=== PATIENT | female | born 1980 | race Caucasian/White ===

== ENCOUNTER 2018-06-19 11:00 | Inpatient (IN) | payer BC, OTHER ==
[2018-06-19 13:34] VITALS: BMI 37.8
[2018-06-19] MEDS ORDERED: morphine SULFATE/Preservative Free 0.5 MG/ML (1cc Syringe) ONE (13:44)
[2018-06-19] MEDS ORDERED: CLINDAMYCIN PHOSPHATE 600 MG/4 ML VIAL ONE (14:06)
[2018-06-19] MEDS ORDERED: OXYTOCIN 10 UNITS/ML VIAL ONE ×2 (14:18→14:31)
[2018-06-19] MEDS ORDERED: ePHEDrine SULFATE 50 MG/1 ML AMPULE ONE (14:23)
[2018-06-19 15:12] LABS: VENOUS PC02 53.7 mmHg (38-52); VENOUS PH 7.28 (7.32-7.42)
[2018-06-19 15:13] LABS: VENOUS PO2 16.5 mmHg (28-48)
[2018-06-19 15:14] LABS: ARTERIAL BLOOD GAS PCO2 47.6 mmHg (35-45); ARTERIAL BLOOD GAS pH 7.29 (7.35-7.45)
[2018-06-19 15:17] LABS: ARTERIAL BLOOD GAS PO2 17.4 mmHg (80-100)
[2018-06-19] MEDS ORDERED: oxyCODONE HCL 5 MG TABLET PO PRN ×2 (15:38)
[2018-06-19] MEDS ORDERED: BENZOCAINE 28 GM HEMORRHOIDAL OINTMENT TP PRN (15:38)
[2018-06-19] MEDS ORDERED: WITCH HAZEL 50% (TUCKS) 40 PAD/JAR PAD TP PRN (15:38)
[2018-06-19] MEDS ORDERED: METHYLERGONOVINE MALEATE 0.2 MG/1 ML AMP IM PRN (15:38)
[2018-06-19] MEDS ORDERED: BENZOCAINE 20% 57 GM BOTTLE TP PRN (15:38)
--- NOTE | 2018-06-19 15:38 | HP ---
Past Medical History - Admission History of Present Illness: 38 yo @ 38 6/7 wks, by first trimester ultrasound, EDC 06/27/2018 complicated by: 1. AMA - reassuring testing 2. Obesity - early GCT elevated, normal GTT; second trimester GTT WNL 20 lb total weight gain EFW 06/10 - 3123 g (47%) 6 lb 14 oz 3. Hx/o infertility - s/p failed IUI x 2, spontaneous 4. Desires permanent sterilization 5. Transverse lie Patient presents for routine testing, she was noted to have a FH baseline of 105 - 115. BPP was performed, -2 for breathing noted. She denies complaints, reports movement, denies leakage of fluid, vaginal bleeding or contractions. History Source: Patient Limitations to Obtaining History: No Limitations - Past Medical History Cardiovascular: No: HTN Pulmonary: No: Asthma Gastrointestinal: No: GERD ...: 3 ...Para: 1 ...Term: 1 ...: 0 ...Spon : 1 ...Induced : 0 ...Multiple Gestation: 0 ...LMP: 09/30/17 ... Weeks Gestation by Dates: 37.3 ...EDC by Dates: 07/07/18 ...EDC by Sono: 06/27/18 Heme/Onc: Yes: Anemia - Past Surgical History Past Surgical History: Yes: Hx Myomectomy: No Hx Transabdominal Cerclage: No - Smoking History Smoking history: Never smoked Have you smoked in the past 12 months: No - Alcohol/Substance Use Hx Alcohol Use: No History of Substance Use: reports: None - Social History Usual Living Arrangement: Yes: With Spouse History of Recent Travel: No Home Medications - Allergies Allergies/Adverse Reactions: Allergies Allergy/AdvReac Type Severity Reaction Status Date / Time Penicillins AdvReac Mild Vomiting Verified 06/19/18 11:34 - Home Medications Home Medications: Ambulatory Orders Vitamins (Sjr) - [ .Vitamins *Rx*] 1 tab PO DAILY 09/20/12 Family Disease History - Family Disease History Family History: Denies Review of Systems - Review of Systems Constitutional: reports: No Symptoms Cardiovascular: reports: No Symptoms Respiratory: reports: No Symptoms Gastrointestinal: reports: No Symptoms Genitourinary: reports: No Symptoms Musculoskeletal: reports: No Symptoms Integumentary: reports: No Symptoms Neurological: reports: No Symptoms Endocrine: reports: No Symptoms Hematology/Lymphatic: reports: No Symptoms Physical Exam - Maternity Vital Signs: Vital Signs Temperature 97.8 F 06/19/18 11:31 Pulse Rate 84 06/19/18 11:31 Respiratory Rate 18 06/19/18 11:31 Blood Pressure 121/75 06/19/18 11:31 O2 Sat by Pulse Oximetry (%) Constitutional: Yes: Well Nourished, No Distress, Calm HENT: Yes: Atraumatic, Normocephalic Cardiovascular: Yes: Regular Rate and Rhythm Lungs: Clear to auscultation - Abdominal Exam/OB Number of Fetuses: Single Presentation: Transverse - Vaginal Exam/OB Vaginal Bleediing: No - Physical Exam Musculoskeletal: Yes: WNL Extremities: Yes: WNL Psychiatric: Yes: Alert, Oriented - Labs Lab Results: PNL - O positive; antibody negative; RPR NR; HIV neg; HBS Ag neg; HCV neg; rubella immune; varicella immune; parvo immune; early gct elevated --> normal GTT; normal second trimester GTT; GBS positive Hemorrhage Risk Assessment - Risk Factors Medium Risk Factors: Yes: None High Risk Factors: Yes: None Risk Score: 1 Risk Level: Medium Risk Assessment/Plan 38 yo @ 389 6/7 wks, nonreassuring testing, plan for repeat CD Desires perminant sterilization, plan for bilateral salpingectomy 1. Consents reviewed and signed 2. Routine labs reviewed 3. Will proceed to OR
--- NOTE | 2018-06-19 15:38 | PN ---
Delivery - Delivery Section: Repeat Type of Anesthesia: Spinal EBL (cc): 700 Delivery, Single - Stages of Labor Date of Delivery: 06/19/18 Time of Delivery: 14:29 Time Placenta Delivered: 14:31 - Condition of Infant Service Center Specialist/Credit And Collections Representative Present: Yes Name: Caitlin Lopez Gender: Female Weight: 7 lb 6 oz Total Hours ROM (Hrs/Mins): 4 minutes - 1 Minute Total Score: 9 5 Minutes Total Score: 9 - Feeding Plan Initial Plan: Exclusive throughout hospitalization Remarks - Remarks Remarks: Surgeon: Jasiel; Assist: Isaiah; Anesthesia: Rangel Surgery: repeat CD, bilateral salpingectomy via pfannensteil Findings: Female , transverse position; rotated to breech; normal bilateral fallopian tubes and ovaries; posterior fibroid IVF: 1500; UOP 200: EBL 700 Dictation: [id number]
[2018-06-19] MEDS: OXYTOCIN 20 UNITS in 0.9% NS 20 UNIT/1,000 ML INFUS.BAG IV SCH (16:30)
[2018-06-19] MEDS ORDERED: IBUPROFEN 800 MG/8 ML IJ IVPB ONE (16:36)
[2018-06-19] MEDS: IBUPROFEN 800 MG/8 ML IJ IVPB PRN (16:50)
[2018-06-19] MEDS ORDERED: CITRIC ACID/SODIUM CITRATE 30 ML UNIT-DOSE CUP PO ONE (17:00)
[2018-06-19] MEDS ORDERED: ELECTROLYTE-148 SOLN 1,000 ML IV ONE (17:15)
[2018-06-19] MEDS ORDERED: TUBERCULIN PPD 5 TU/0.1ML SYRINGE (IN PATIENT USE ONLY) ID ONE (17:30)
[2018-06-19] MEDS: FERROUS SO4 325 MG TABLET (FP) PO SCH (18:28)
[2018-06-19] MEDS ORDERED: ONDANSETRON 4 MG/2 ML VIAL IVPUSH PRN (19:40)
--- NOTE | 2018-06-19 22:30 | DS ---
Physical Exam-INSTRUCTOR FLYING Vital Signs: Vital Signs Temperature 97.9 F 06/19/18 21:00 Pulse Rate 88 06/19/18 21:00 Respiratory Rate 20 06/19/18 22:00 Blood Pressure 127/76 06/19/18 21:00 O2 Sat by Pulse Oximetry (%) 100 06/19/18 16:42 Delivery - Delivery Section: Repeat Type of Anesthesia: Spinal EBL (cc): 700 Delivery, Single - Stages of Labor Date of Delivery: 06/19/18 Time of Delivery: 14:29 Time Placenta Delivered: 14:31 - Condition of Infant Leaf Sorter/Building Energy Retrofit Technician Present: Yes Name: Caitlin Lopez Infant Gender: Female Weight: 7 lb 6 oz Total Hours ROM (Hrs/Mins): 4 minutes - 1 Minute Total Score: 9 5 Minutes Total Score: 9 - [place] Feeding Plan Initial Plan: Exclusive throughout hospitalization Discharge Summary Reason For Visit: ADMIT SECTION Current Active Problems Anemia (Acute) Non-reassuring heart tones complicating , antepartum (Acute) Status post repeat low transverse section (Acute) Sterilization (Acute) Procedures: Principal: delvivery and bilateral salpingectomy Hospital Course: Patient was admitted for repeat delivery at 38 + wks for nonreassuring testing POD # 1 patient ambulated, voiding, passing gas, tolerating oral intake and with adequate pain control. Noted to have mild asymptomatic anemia She fulfilled all criteria for discharge POD #3 Condition: Good - Instructions Diet, Activity, Other Instructions: [facility] Reference #: [id number] Physical activity Resume your normal everyday activity as tolerated no heavy lifting or exercise until seen by your surgeon. You may walk unlimited alexus of and climb stairs. You may resume driving the car when you feel safe and comfortable behind the wheel. No sexual activity as instructed. Wound care If you have a bandage, leave it on, and keep dry for 48-72 hours. After that time discard the outer bandage. If they are tapes on the skin under the out of bandage leave them in place. They will peel off in the next 7 to 10 days. Do Not Peel them off. You may shower the day after surgery. If there are tapes present on the skin, you may shower over them. Diet There are no dietary restrictions. Eat healthy, high-fiber foods. Drink 6 to 8 glasses of liquid each day. This will assist in keeping your bowels are regular. Pain management You may take Tylenol or acetaminophen or Ibuprofen (for example, Motrin, Advil etc.) from my pain prescription medication is ordered should be taken as prescribed for moderate to severe pain. Call MD for any of the following: Severe pain not relieved by medication Fever of 101 or higher Excessive bleeding or drainage on dressing Inability to urinate Referrals: Iesha Weathers MD [Staff Physician] - Disposition: HOME - Home Medications Comprehensive Discharge Medication List: Ambulatory Orders Vitamins (Sjr) - [ .Vitamins *Rx*] 1 tab PO DAILY 09/20/12
[2018-06-20] MEDS: IBUPROFEN 800 MG/8 ML IJ IVPB PRN ×2 (02:00→10:47)
--- NOTE | 2018-06-20 07:31 | PN ---
Post Progress Note - Subjective Subjective: Patient without acute complaints. Tolerating clears, without complaints of nausea or vomiting. No ambulation yet. Denies fevers or chills. without difficulty Pain well controlled Benson removed this AM, no voiding yet. Denies flatus. Post Day: 1 Type of Delivery: Repeat C/S Vital Signs: Vital Signs Temperature 97.9 F 06/20/18 05:00 Pulse Rate 82 06/20/18 05:00 Respiratory Rate 20 06/20/18 06:00 Blood Pressure 96/65 06/20/18 05:00 O2 Sat by Pulse Oximetry (%) 100 06/19/18 16:42 Breast Exam: Yes: Soft Uterus: Yes: Fundus Firm, Fundus @ umbilicus Incision: Yes: Dressing dry and intact Abdomen/GI: Yes: Abdomen soft, Tender (mild incisional). No: Abdominal Distention, Passing flatus, Tolerating PO Lochia: Yes: Serosa Lochia, amount: Moderate Extremities: Yes: Calves non-tender, Edema (trace) Assessment/Plan 38 yo POD # 1 s/p repeat CD + bilateral salpingectomy, afebrile, vital signs stable, doing well 1. Continue routine postoperative care. 2. Follow up AM CBC 3. Rh positive status, no rhogam indicated. 4. Encourage ambulation and incentive spirometer use 5. Continue oral pain medication 6. Anticipate discharge home postoperative day #3 or #4
[2018-06-20 08:05] LABS: BASO % 0.3 % (0-2.0); EOS % 0.6 % (0-4.5); HEMATOCRIT 24.7 % (32.4-45.2); HEMOGLOBIN 8.1 GM/dL (10.7-15.3); MCH 25.8 pg (25.7-33.7); MCHC 32.7 g/dl (32.0-36.0); MEAN CELL VOLUME 78.8 fl (80-96); MEAN PLT VOLUME 8.7 fl (7.5-11.1); MONO % 8.3 % (3.8-10.2); NEUT % 74.8 % (42.8-82.8); PLATELET COUNT 162 K/MM3 (134-434); RBC 3.13 M/mm3 (3.60-5.2)
--- NOTE | 2018-06-20 08:27 | PN ---
Progress Note, Physician Chief Complaint: Pt. pain controlled, feeling good. Has not gotten out of bed and frances still in place. No anesthesia complaints. - Current Medication List Current Medications: Active Medications Acetaminophen (Tylenol -) 650 mg PO Q4H PRN PRN Reason: FEVER Benzocaine (Americaine 20% [place] -) 1 spray TP DAILY PRN PRN Reason: Pain - Topical Benzocaine (Americaine Ointment -) 1 applic TP DAILY PRN PRN Reason: Pain - Topical Bisacodyl (Dulcolax Suppository -) 10 mg RC DAILY PRN PRN Reason: CONSTIPATION Ferrous Sulfate (Feosol -) 325 mg PO BIDWM [facility] Last Admin: 06/19/18 18:28 Dose: Not Given Oxytocin/Sodium Chloride (Normal Saline+20 Units Oxytocin -) 20 unit in 1,000 mls @ 125 mls/hr IV ASDIR [facility] Last Admin: 06/19/18 16:30 Dose: 125 mls/hr Ibuprofen (Motrin -) 600 mg PO Q4H PRN PRN Reason: PAIN LEVEL 1 - 3 Ibuprofen (Caldolor Injection -) 800 mg IVPB Q8H PRN PRN Reason: PAIN LEVEL 1-5 Last Admin: 06/20/18 02:00 Dose: 800 mg Methylergonovine Maleate (Methergine Injection -) 0.2 mg IM Q4H PRN PRN Reason: Excessive Bleeding (L&D) Ondansetron HCl (Zofran Injection) 4 mg IVPUSH Q6H PRN PRN Reason: NAUSEA AND/OR VOMITING Last Admin: 06/19/18 19:49 Dose: 4 mg Oxycodone HCl (Roxicodone -) 5 mg PO Q4H PRN PRN Reason: PAIN LEVEL 4 - 6 Oxycodone HCl (Roxicodone -) 10 mg PO Q4H PRN PRN Reason: PAIN LEVEL 7 - 10 Multivit/Folic Acid/Iron ( Vitamins (Sjr) -) 1 tab PO DAILY [facility] Simethicone (Mylicon -) 80 mg PO Q4H PRN PRN Reason: GAS Witch Ewa/Glycerin (Tucks Pads -) 1 pad TP DAILY PRN PRN Reason: Pain - Topical - Objective Vital Signs: Vital Signs Temperature 97.9 F 06/20/18 05:00 Pulse Rate 82 09/30/18 05:00 Respiratory Rate 20 06/20/18 06:00 Blood Pressure 96/65 06/20/18 05:00 O2 Sat by Pulse Oximetry (%) 100 06/19/18 16:42 Constitutional: Yes: Well Nourished, No Distress, Calm Musculoskeletal: Yes: WNL Neurological: Yes: WNL, Alert, Oriented ...Motor Strength: WNL Labs: CBC, BMP 06/20/18 07:20 Assessment/Plan POD#1 s/p repeat under spinal with duramorph. Doing well. Will D/C from anesthesia care once ambulating and voiding this morning.
[2018-06-20] MEDS: FERROUS SO4 325 MG TABLET (FP) PO SCH ×2 (09:30→18:18)
[2018-06-20] MEDS: PRENATAL VITAMINS W/ FOLIC ACID TABLET (FP) PO SCH (09:31)
--- NOTE | 2018-06-20 12:14 | OP ---
DATE OF OPERATION: 06/19/2018 ATTENDING PHYSICIAN: Iesha Weathers MD PREOPERATIVE DIAGNOSES: Intrauterine , 38-6/7 weeks, nonreassuring incidental chest pain, desiring permanent sterilization. POSTOPERATIVE DIAGNOSES: Intrauterine , 38-6/7 weeks, nonreassuring incidental chest pain, desiring permanent sterilization. SURGERY: Repeat delivery, bilateral salpingectomy via Pfannenstiel skin incision. MR TEACHER: Bhsakar Colon MD ANESTHESIOLOGIST: Fausto Multani MD ANESTHESIA: Spinal. URINE OUTPUT: 200. IV FLUIDS: 1500. ESTIMATED BLOOD LOSS: 700. INDICATION: The patient is a 38-year-old, 3, para 1, who was presenting for testing, was found to have a low heart baseline rate with good variability and accelerations. She underwent a BPP, which revealed a -2 for breathing, and the decision was made to proceed with delivery. Furthermore, she wanted permanent sterilization. Consents were reviewed and signed. Risks, benefits, alternatives and complications of procedure were discussed including infection, bleeding, damage to surrounding organs such as the bowel, bladder, injury to , risk of tubal ligation failure, risk of regret. She expressed understanding and was brought to the operating room. DESCRIPTION: When anesthesia was found to be adequate, patient was prepped and draped in normal sterile fashion, placed in dorsal supine position, leftward tilt. An approximately 11 cm skin incision was made along the previous skin scar and carried down to the underlying rectus muscle using the Bovie electrocautery. The fascia was nicked in midline, extended laterally using Crain scissors. Inferior portion of the fascial incision was tented up using Mendoza clamps, dissected off underlying rectus muscles using Crain scissors. Attention was brought to the superior fascial incision, where in a similar fashion, it was tented up using Mendoza clamps, dissected off the underlying rectus muscle using Crain scissors. The rectus muscles were in the midline and the peritoneum was entered bluntly. The peritoneal incision was extended superiorly and inferiorly. An Dmitry O retractor was placed in the abdominal cavity and used for adequate visualization. Palpation of the uterus revealed a transverse lie. The infant was rotated to a breech and hysterotomy was performed. The hysterotomy incision was extended using bandage scissors. Amniotomy was performed. Clear fluid was noted. Footling breech was noted. The infant's feet were delivered to the level of the shoulders, where the right shoulder was rotated anteriorly and the right arm and the left arm were delivered. The infants head was brought to the hysterotomy site and the 's head was flexed, and the infant was delivered. Cord was clamp and cut. Cord blood and cord gases were collected and sent. The infant was handed to awaiting NICU staff present for delivery. The placenta was manually extracted. The uterus was cleared of all clot and debris. The uterus was closed using 0 Biosyn with a running layer, the second layer was imbricated layer. Attention was brought to the left fallopian tube. It was followed to fimbriated end. The fallopian tube was removed, suture ligated using a 0 Vicryl. Attention was brought to the right fallopian tube. It was followed to fimbriated end and it was suture ligated using 0 Vicryl. Good hemostasis was noted. The gutters were cleared of all clot and debris. The uterus was returned back to the abdominal cavity. All pedicles were examined and found to be hemostatic. The peritoneum was closed using 2-0 Biosyn in a running fashion. The rectus muscles were reapproximated using 2-0 Biosyn in interrupted fashion. The fascia was closed using 0 Vicryl in running fashion. Subcutaneous fat was closed using 0 Vicryl in running fashion. The skin was reapproximated using 3-0 Vicryl. The patient tolerated procedure well. Estimated blood loss was 700 mL. The patient was brought to recovery room in stable condition. Davidson [id number] MTDD
[2018-06-20] MEDS: SIMETHICONE 80 MG TAB.CHEW (FP) PO PRN ×2 (14:10→18:18)
[2018-06-20] MEDS ORDERED: BISACODYL 10 MG SUPP.RECT RC PRN (15:38)
[2018-06-20] MEDS: ACETAMINOPHEN 325 MG TABLET (FP) PO PRN (16:35)
[2018-06-20] MEDS: IBUPROFEN 600 MG TABLET (FP) PO PRN (16:35)
[2018-06-20] MEDS: OXYTOCIN 20 UNITS in 0.9% NS 20 UNIT/1,000 ML INFUS.BAG IV SCH (18:12)
[2018-06-21] MEDS: SIMETHICONE 80 MG TAB.CHEW (FP) PO PRN ×3 (00:32→21:37)
[2018-06-21] MEDS: IBUPROFEN 600 MG TABLET (FP) PO PRN ×4 (00:33→21:36)
[2018-06-21] MEDS: ACETAMINOPHEN 325 MG TABLET (FP) PO PRN ×4 (00:33→21:37)
--- NOTE | 2018-06-21 07:44 | PN ---
Post Progress Note - Subjective Subjective: Patient without acute complaints. Reports tolerating oral intake without nausea or vomiting. Ambulating without dizziness. Denies fevers or chills. Pain well controlled with oral pain medication. without difficulty. Passing flatus. Post Day: 2 Type of Delivery: Repeat C/S Vital Signs: Vital Signs Temperature 97.9 F 06/20/18 21:01 Pulse Rate 77 06/20/18 21:01 Respiratory Rate 18 06/20/18 21:01 Blood Pressure 134/81 06/20/18 21:01 O2 Sat by Pulse Oximetry (%) 100 06/19/18 16:42 Breast Exam: Yes: Soft Uterus: Yes: Fundus Firm Incision: Yes: Sutures intact Abdomen/GI: Yes: Abdomen soft, Passing flatus, Tolerating PO Lochia: Yes: Rubra Lochia, amount: Small Extremities: Yes: Calves non-tender Perineum: Yes: Intact Activity: Ambulating - Labs Labs: CBC WBC 10.0 K/mm3 (4.0-10.0) 06/20/18 07:20 RBC 3.13 M/mm3 (3.60-5.2) L 06/20/18 07:20 Hgb 8.1 GM/dL (10.7-15.3) L 06/20/18 07:20 Hct 24.7 % (32.4-45.2) L 06/20/18 07:20 MCV 78.8 fl (80-96) L 06/20/18 07:20 MCH 25.8 pg (25.7-33.7) 06/20/18 07:20 MCHC 32.7 g/dl (32.0-36.0) 06/20/18 07:20 RDW 15.0 % (11.6-15.6) 06/20/18 07:20 Plt Count 162 K/MM3 (134-434) D 06/20/18 07:20 MPV 8.7 fl (7.5-11.1) 06/20/18 07:20 Absolute Neuts (auto) 7.5 K/mm3 (1.5-8.0) 06/20/18 07:20 Neutrophils % 74.8 % (42.8-82.8) 06/20/18 07:20 Lymphocytes % 16.0 % (8-40) D 06/20/18 07:20 Monocytes % 8.3 % (3.8-10.2) 06/20/18 07:20 Eosinophils % 0.6 % (0-4.5) 06/20/18 07:20 Basophils % 0.3 % (0-2.0) 06/20/18 07:20 Nucleated RBC % 0 % (0-0) 06/20/18 07:20 Assessment/Plan 38yo P2 s/p Repeat c/section and BTL POD # 2 1. Doing well 2. VSS, Afebrile, no evidance of acute blood loss 3. Rh positive status, no rhogam indicated. 4. Encourage ambulation 5. Continue oral pain medication and routine care 6. Recommend rectal suppository to augment the BM
[2018-06-21] MEDS: FERROUS SO4 325 MG TABLET (FP) PO SCH ×2 (08:12→17:43)
[2018-06-21] MEDS: PRENATAL VITAMINS W/ FOLIC ACID TABLET (FP) PO SCH (09:39)
[2018-06-21] MEDS ORDERED: SENNOSIDES/DOCUSATE COMBO (SENNA PLUS) TABLET (UD) PO PRN (21:24)
[2018-06-22] MEDS: ACETAMINOPHEN 325 MG TABLET (FP) PO PRN ×2 (05:02→12:18)
[2018-06-22] MEDS: SIMETHICONE 80 MG TAB.CHEW (FP) PO PRN (05:03)
[2018-06-22] MEDS: IBUPROFEN 600 MG TABLET (FP) PO PRN ×2 (05:03→12:20)
[2018-06-22 08:01] LABS: BASO % 0.4 % (0-2.0); HEMATOCRIT 23.8 % (32.4-45.2); HEMOGLOBIN 7.6 GM/dL (10.7-15.3); LYMPH % 27.4 % (8-40); MCH 25.5 pg (25.7-33.7); MCHC 32.2 g/dl (32.0-36.0); MEAN CELL VOLUME 79.3 fl (80-96); MEAN PLT VOLUME 8.9 fl (7.5-11.1); MONO % 7.6 % (3.8-10.2); NEUT % 60.6 % (42.8-82.8); PLATELET COUNT 179 K/MM3 (134-434); WHITE BLOOD COUNT 6.2 K/mm3 (4.0-10.0)
[2018-06-22] MEDS: FERROUS SO4 325 MG TABLET (FP) PO SCH (08:30)
[2018-06-22 08:33] VITALS: BP 135/73; PULSE 53; TEMP 97.7
[2018-06-22] MEDS: PRENATAL VITAMINS W/ FOLIC ACID TABLET (FP) PO SCH (09:37)
--- NOTE | 2018-06-22 09:53 | PN ---
Post Progress Note - Subjective Subjective: Patient without acute complaints. Reports tolerating oral intake without nausea or vomiting. Ambulating without dizziness. Denies fevers or chills. Pain well controlled with oral pain medication. without difficulty. Passing flatus. No BM yet Post Day: 3 Type of Delivery: Repeat C/S Vital Signs: Vital Signs Temperature 97.7 F 06/22/18 08:29 Pulse Rate 53 L 06/22/18 08:29 Respiratory Rate 18 06/22/18 08:29 Blood Pressure 135/73 06/22/18 08:29 O2 Sat by Pulse Oximetry (%) 100 06/19/18 16:42 Breast Exam: Yes: Soft Uterus: Yes: Fundus Firm Incision: Yes: Sutures intact Abdomen/GI: Yes: Passing flatus, Tolerating PO Lochia: Yes: Rubra Lochia, amount: Small Extremities: Yes: Calves non-tender Activity: Ambulating - Labs Labs: CBC WBC 6.2 K/mm3 (4.0-10.0) 06/22/18 07:00 RBC 3.00 M/mm3 (3.60-5.2) L 06/22/18 07:00 Hgb 7.6 GM/dL (10.7-15.3) L 06/22/18 07:00 Hct 23.8 % (32.4-45.2) L 06/22/18 07:00 MCV 79.3 fl (80-96) L 06/22/18 07:00 MCH 25.5 pg (25.7-33.7) L 06/22/18 07:00 MCHC 32.2 g/dl (32.0-36.0) 06/22/18 07:00 RDW 15.0 % (11.6-15.6) 06/22/18 07:00 Plt Count 179 K/MM3 (134-434) 06/22/18 07:00 MPV 8.9 fl (7.5-11.1) 06/22/18 07:00 Absolute Neuts (auto) 3.7 K/mm3 (1.5-8.0) 06/22/18 07:00 Neutrophils % 60.6 % (42.8-82.8) 06/22/18 07:00 Lymphocytes % 27.4 % (8-40) D 06/22/18 07:00 Monocytes % 7.6 % (3.8-10.2) 06/22/18 07:00 Eosinophils % 4.0 % (0-4.5) D 06/22/18 07:00 Basophils % 0.4 % (0-2.0) 06/22/18 07:00 Nucleated RBC % 0 % (0-0) 06/22/18 07:00 Assessment/Plan 38yo P2 s/p Repeat c/section and BTL POD # 3 1. Doing well 2. VSS, Afebrile, no evidance of acute blood loss 3. Rh positive status, no rhogam indicated. 4. Encourage ambulation 5. Continue oral pain medication and routine care 6. Recommend another rectal suppository to augment the BM 7. Will d/c home today if baby is cleared by Peds, otherwise 06/23/18 8. All precautions given: NPV for 6wks, RTO 1 week
--- NOTE | 2018-06-24 14:18 | PATH ---
Surgical Pathology Report Patient Name: SEDA MARTINEZ [facility]. Rec. #: [id number] /Age/Gender: 1980 (Age: 38) / F Account: [id number] Location: [facility] OBS/GEOTHERMAL OPERATIONS ENGINEER Taken: 06/19/2018 Received: 06/21/2018 Reported: 06/24/2018 Physicians: Iesha Weathers Specimen(s) Received A: PLACENTA B: LEFT FALLOPIAN TUBE C: RIGHT FALLOPIAN TUBE Clinical History , Advanced the maternal age, H/O 2012, infertility, SAB Final Diagnosis A. PLACENTA: THIRD TRIMESTER PLACENTA. TRIVASCULAR CORD. MEMBRANES WITH NO DIAGNOSTIC ABNORMALITIES. B. LEFT FALLOPIAN TUBE: COMPLETE CROSS SECTION OF THE FALLOPIAN TUBE IDENTIFIED. C. RIGHT FALLOPIAN TUBE: COMPLETE CROSS SECTION OF THE FALLOPIAN TUBE IDENTIFIED. Electronically Signed Tom Valadez M.D. Gross Description A. The specimen is received fresh labeled "placenta" and is a 461 gram, 19 x 16 x 2.5 cm. placenta with attached membranes and umbilical cord. The attached membranes are glistening and translucent and marginally. The umbilical cord measures 19 cm. in length and averages 1 cm. in diameter. The cord inserts marginally. No true knots or strictures are identified. Cut surface of the umbilical cord reveals 3 vessels. The surface is sumner-blue with minimal fibrin deposition and appropriate caliber vessels. The maternal surface is red-brown with no defect. Sectioning reveals red-brown, spongy parenchyma. No lesions are identified. Injection Wax Molder sections are submitted in three cassettes as follows: 1- membrane rolls and umbilical cord; 2-3- full thickness sections of placenta. B. Received fresh labelled "left fallopian tube" is a 4.5 cm long by 0.5 cm in diameter portion of tissue consistent with a portion of fallopian tube. The fimbriated end is identified. No focal lesions are identified. Sectioned and totally submitted in one cassette. C. Received fresh labelled "right fallopian tube" is a 3.0 cm long by 0.6 cm in diameter portion of tissue consistent with a portion of fallopian tube. The fimbriated end is identified. No focal lesions are identified. Sectioned and totally submitted in one cassette. __ KWS/06/21/2018 reggie/06/21/2018
== END 2018-06-22 17:00 | disposition home or self-care (01) | DRG 765 ==
LOC: JDEL 11:00 → JLDR 13:10 → J3W 16:50
PROVIDERS: ADMIT Obstetrics & Gynecology; ATTEND Obstetrics & Gynecology
PROC: 10D00Z1 Extraction of Products of Conception, Low, Open Approach (ICD-10-PCS; principal; 2018-06-19)
PROC: 0UB70ZZ Excision of Bilateral Fallopian Tubes, Open Approach (ICD-10-PCS; 2018-06-19)
DX: O76 Abnormality in fetal heart rate and rhythm complicating labor and delivery (principal); Z68.41 Body mass index [BMI] 40.0-44.9, adult; N85.8 Other specified noninflammatory disorders of uterus; O99.214 Obesity complicating childbirth; E66.9 Obesity, unspecified; O34.211 Maternal care for low transverse scar from previous cesarean delivery; O99.02 Anemia complicating childbirth; Z3A.38 38 weeks gestation of pregnancy; Z30.2 Encounter for sterilization; O32.2XX0 Maternal care for transverse and oblique lie, not applicable or unspecified; Z37.0 Single live birth
CPT/HCPCS: 36415; 36600; 59025; 76819-TC; 82803; 85025; 88302-TC; 88307-TC; 94010

== ENCOUNTER 2023-05-08 12:41 | Emergency (ER) | payer BC, OTHER ==
[2023-05-08 12:49] VITALS: BMI 36.6
[2023-05-08 14:41] LABS: BASO % 0.4 % (0-2.0); EOS % 2.2 % (0-4.5); HEMATOCRIT 40.2 % (32.4-45.2); HEMOGLOBIN 13.6 GM/dL (10.7-15.3); LYMPH % 21.1 % (8-40); MCH 28.1 pg (25.7-33.7); MCHC 33.9 g/dl (32.0-36.0); MEAN CELL VOLUME 83.1 fl (80-96); MEAN PLT VOLUME 7.4 fl (7.5-11.1); MONO % 7.8 % (3.8-10.2); NEUT % 68.5 % (42.8-82.8); PLATELET COUNT 264 10^3/uL (134-434); RBC 4.84 M/mm3 (3.60-5.2); RDW 13.7 % (11.6-15.6); WHITE BLOOD COUNT 6.9 K/mm3 (4.0-10.0)
[2023-05-08 15:00] LABS: ALBUMIN 4.1 g/dl (3.4-5.0); BLOOD UREA NITROGEN 10.8 mg/dL (7-18)
[2023-05-08 15:03] LABS: CREATININE 0.8 mg/dL (0.55-1.3)
[2023-05-08 15:05] LABS: BILIRUBIN,TOTAL 0.5 mg/dL (0.2-1); TOT PROT 7.6 g/dl (6.4-8.2)
[2023-05-08 15:21] VITALS: BP 136/83; PULSE 77; RESP 16; TEMP 98.2
== END 2023-05-08 15:34 | disposition home or self-care (01) ==
LOC: JERFT 12:41 → JER 12:41 → JERFT 15:34
DX: R03.0 Elevated blood-pressure reading, without diagnosis of hypertension (principal); R42 Dizziness and giddiness
CPT/HCPCS: 36415; 71046-TC-FY; 80053; 84443; 84484; 85025; 93005; 93010; 99285-25

== ENCOUNTER 2023-08-20 04:29 | Day surgery (SDC) | payer BC, OTHER ==
[2023-08-17 15:08] VITALS: BMI 36.9
[2023-08-20 08:39] VITALS: RESP 18
[2023-08-20 11:40] VITALS: BP 112/73; PULSE 67; TEMP 98.9
== END 2023-08-20 10:55 | disposition home or self-care (01) ==
LOC: JASU-ENDO 04:29
PROVIDERS: ATTEND Internal Medicine Gastroenterology
PROC: 0DBL8ZX Excision of Transverse Colon, Via Natural or Artificial Opening Endoscopic, Diagnostic (ICD-10-PCS; principal; 2023-08-20 09:15)
DX: Z12.11 Encounter for screening for malignant neoplasm of colon (principal); K63.5 Polyp of colon; K64.8 Other hemorrhoids; K57.30 Diverticulosis of large intestine without perforation or abscess without bleeding
CPT/HCPCS: 88305-TC